=== PATIENT | female | born 1980 | race Two or more races ===

== ENCOUNTER 2023-07-24 06:56 | Emergency (ER) | payer OTHER, SELFPAY ==
[2023-07-24 06:59] VITALS: BP 117/64; PULSE 79; RESP 18; TEMP 37.2; O2SAT 100; BMI 23.6
--- NOTE | 2023-07-24 07:34 | ED_ITS ---
HPI - Neck Pain/Injury General Chief Complaint: Neck Pain/Injury Stated Complaint: back and neck pain Time Seen by Provider: 07/24/23 07:19 Source: patient Mode of arrival: ambulatory Limitations: no limitations History of Present Illness HPI Narrative: 42 yo female presenting to the ER for evaluation of left sided neck pain and stiffness that radiates to the upper and middle back. She woke up with the pain this morning and has limited ROM. She reports playing basketball with her kids last night. No specific injury recalled. No headache, no radiation of pain down the arms, numbness or tingling. No recent chiropractor work. MD complaint: neck pain and upper back pain Onset (ago): hour(s) Place: home Radiation: left lateral and upper back Severity: severe Quality: sharp and spasming Duration: constant Relieving factors: immobilization Exacerbating factors: movement of neck Associated symptoms: none Treatments prior to arrival: none Related Data Previous Rx's ?Medication ?Instructions ?Recorded cyclobenzaprine 10 mg tablet 10 mg PO TID PRN muscle spasm #14 07/24/23 tabs ibuprofen 600 mg tablet 600 mg PO Q8H PRN pain #20 tabs 07/24/23 lidocaine 5 % topical patch 1 patch topical DAILY #15 ea 07/24/23 Allergies Allergy/AdvReac Type Severity Reaction Status Date / Time prochlorperazine AdvReac Flushing Verified 07/24/23 07:04 [From Compazine] Review of Systems Review of Systems: Yes all other systems are reviewed and are negative PMFSH Social History Social History Advance Directives: No Physical Exam Vital Signs: Vital Signs: Last Vital Signs Temp 98.9 F 07/24/23 06:59 Pulse 79 07/24/23 06:59 Resp 18 07/24/23 06:59 BP 117/64 07/24/23 06:59 Pulse Ox 100 07/24/23 06:59 O2 Del Method Room Air 07/24/23 06:59 BMI result Body Mass Index 23.6 Appearance: Alert. Oriented X3. No acute distress. Appears stiff Head: normocephalic, atraumatic. Eyes: Pupils equal, round and reactive to light. ENT: Pharynx normal. No tonsillar swelling or exudate. Neck: Stiffened neck w/ limited ROM, palpable muscle spasm of the left lateral neck and upper trapezius. no midline tenderness CVS: Normal heart rate and rhythm. Pulses normal. Respiratory: No respiratory distress. Breath sounds normal. Skin: Skin warm and dry. Normal skin color. Normal skin turgor. No rashes. Extremities: No lower extremity edema. No joint swelling. Neuro/psych: Oriented X 3. No motor deficit. No sensory deficit. CN II-XII intact. Normal speech and cognition. 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 Medications Administered Discontinued Medications Generic Name Dose Route Start Last Admin Trade Name Brittany PRN Reason Stop Dose Admin Acetaminophen 975 mg 07/24/23 07:26 07/24/23 07:48 Acetaminophen 325 Mg Tablet PO 07/24/23 07:27 975 mg ONCE ONE Administration Cyclobenzaprine HCl 10 mg 07/24/23 07:26 07/24/23 07:48 Cyclobenzaprine Hcl 10 Mg Tablet PO 07/24/23 07:27 10 mg ONCE ONE Administration Ibuprofen 600 mg 07/24/23 07:26 07/24/23 07:48 Ibuprofen 600 Mg Tablet PO 07/24/23 07:27 600 mg ONCE ONE Administration Lidocaine 1 patch 07/24/23 07:26 07/24/23 07:49 Lidocaine 4 % Patch Adh..Patch TRANSDERMA 07/24/23 07:27 1 patch ONCE ONE Administration Protocol Medical Decision Making Medical Decision Making MDM Narrative: 42 yo female presenting with left sided neck and upper back pain w/ spasm after playing basketball. Woke with the pain and she stuck to the side with limited ROM. Palpable spasm on exam most likely torticollis - treated with nsaid, muscle relaxer and lidoderm patch feeling better after treatment with some increased ROM stable for discharge home w/ muscle relaxer and nsaid return precautions discussed. Differential Diagnosis Differential Diagnoses: The differential diagnosis associated with the presentation includes torticollis, muscle spasm, cervical radiculopathy, cervical fracture, low clinic al suspicion for dissection Tests considered The following testing was considered but not selected: considered CT neck, CTA head/neck but not clinically warranted Prescription Management I considered prescription management with: Pain Medication Critical Care Time Critical Care Time Critical Care Time: No Discharge Plan Discharge Clinical Impression: Torticollis Patient Disposition: Home, Self-Care Instructions: Spasmodic Torticollis (ED) Additional Instructions: Your pain is due to muscle spasm. Use ice or heat to the area Gently work on range of motion to stretch the muscles Take the prescribed medications as directed Take medications as prescribed to help with pain and discomfort. Follow up with your Primary Care Doctor Prescriptions: New cyclobenzaprine 10 mg tablet 10 mg PO TID PRN (Reason: muscle spasm) Qty: 14 0RF ibuprofen 600 mg tablet 600 mg PO Q8H PRN (Reason: pain) Qty: 20 0RF lidocaine 5 % adhesive patch,medicated 1 patch topical DAILY Qty: 15 0RF Rx Instructions: leave on most painful area for up to 12 hrs Stand Alone Forms: Work/School Release Print Language: Upper Sorbian
[2023-07-24] MEDS: Acetaminophen 325 MG TABLET 975 MG PO (07:48)
[2023-07-24] MEDS: Cyclobenzaprine HCl 10 MG TABLET PO (07:48)
[2023-07-24] MEDS: Ibuprofen 600 MG TABLET PO (07:48)
[2023-07-24] MEDS: Lidocaine 4 % Patch ADH..PATCH 1 PATCH TRANSDERMA (07:49)
--- NOTE | 2023-07-24 07:54 | PC.NURSE ---
medicated per the MAR for pain
[2023-07-24 08:15] VITALS: BP 117/64; PULSE 79; RESP 18; TEMP 37.2; O2SAT 100
== END 2023-07-24 08:15 | disposition home or self-care (01) ==
PROVIDERS: Emergency Provider Emergency Medicine
DX: M43.6 Torticollis (principal)
CPT/HCPCS: 99283